=== PATIENT | female | born 1985 | race Caucasian/White ===

== ENCOUNTER 2020-03-31 14:39 | Emergency (ER) | payer OTHER ==
--- OUTSIDE RECORDS SUMMARY | 2020-03-31 14:41 | XMS REPORT | Continuity of Care Document ---
:1985 Author Organization [facility] t Address [address] [place] [address] Care Team Providers Name Role Phone Unavailable Unavailable Unavailable Problems Condition Condition Condition Status Onset Resolution Last Treating Co mments Source Name Details Category Date Date Treatment Clinician Date Asymptomat Asymptomat Problem Active [facility] hypertensi hypertensi Me moria ve urgency ve urgency l [facility] Depression Depression Problem Active [facility] with with [facility] - anxiety anxiety Memoria l [facility] Obesity Obesity Problem [facility] Multiple Multiple Problem [facility] joint pain Lorna kes - Memoria l [facility] Essential Essential Diagnosis Active [facility] hypertensi hypertensi Lorna kes - on on Memoria l [facility] Seasonal Seasonal Problem Active [facility] allergic allergic [facility] - rhinitis rhinitis Memori a l [facility] Anxiety Anxiety Problem Active [facility] disorder, disorder, Luke s - unspecifie unspecifie Me moria d d l [facility] Edema of Edema of Problem Active [facility] left lower left lower Lorna kes - extremity extremity Darrius carlitos l [facility] JULIA JULIA Problem Active [facility] positive positive [facility] Panic Panic Problem Active [facility] attacks attacks [facility] BMI BMI Problem Active [facility] 34.0-34.9, 34.0-34.9, Lorna kes - adult adult Memoria l [facility] Dysuria Dysuria Problem Active [facility] Sinus Sinus Diagnosis Active [facility] pressure pressure [facility] Allergies, Adverse Reactions, Alerts This patient has no known allergies or adverse reactions. Medications Ordered Filled Start Stop Current Ordering Indication Dosage Frequency Signature Comments Components Source Medication Medication Date Date Medication? Clinician (SIG) Name Name Jose Garcia Yes Na Cooley [address] [facility] 03[facility]26 each [facility] - 00:00: nostril Memoria 00 l Outpat[facility] ent Clinics PredniSONE PredniSONE 2019- Yes Na Cooley [address] [facility] 03-26 daily x 5 [facility] - 00:00: 00:00 days then Memoria 00 :00 one tablet l daily x 5 Outpati days ent Clinics Metoprolol Metoprolol Yes Na Cooley [address] Succinate Succinate 10-03 [facility] - ER ER 00:00: Memoria 00 l Outpati ent Clinics Lisinopril- Lisinopril- Yes Na Cooley take [address] [facility] Hydrochloro Hydrochloro tablet by [facility] - thiazide thiazide mouth Memori a every day l Outpati ent Clinics Claritin Claritin Yes Na Cooley [address] [facility] Bystolic Bystolic Yes Na Cooley [address] [facility] Doxycycline Doxycycline Yes Na Cooley [address] [facility] Hyclate Hyclate [facility] Xanax Xanax Yes Na Cooley [address] [facility] Nasonex Nasonex Yes Na Cooley [address] [facility] each [facility] - nostril [facility] Lexapro Lexapro Yes Na Cooley [address] [facility] Macrobid Macrobid Yes Na Cooley [address] with food [facility] - [facility] Procedures This patient has no known procedures. Encounters Start End Encounter Admission Attending Care Care Encounter Source Date/Time Date/Time Type Type Clinicians Facility Department ID 2020-03-26 2020-03-26 [facility] [id number] [facility] 15:40[facility]00 15:40:00 [facility] Medicine Outpati ent Clinics 2020-01-15 2020-01-15 [facility] [id number] 08:20:00 08:20:00 t [facility] Medicine Outpati ent Clinics 2019-11-15 2019-11-15 [facility] [id number] 08:[facility]:00:[address] Luke [place] - [address] [facility] Medicine Outpati ent Clinics 2019-07-17 2019-07-17 [facility] [id number] 08:20:00 08:20:[address] LuAle[place] - Drive [facility] Medicine Outpati ent Clinics 2019-07-04 2019-07-04 [facility] [id number] 15:46:00 15:46:00 [place] LuAlekto s - Drive [facility] Medicine Outpati ent Clinics 2018-11-24 2018-11-24 [facility] [id number] 08:30:00 08:30:00 [place] [employer] [facility] - Drive [facility] Medicine Outpati ent Clinics 2018-10-03 2018-10-03 [facility] [id number] [address] 11:46:00 11:46:00 [place] [facility] - Drive [facility] Medicine Outpati ent Clinics 2018-05-13 2018-05-13 [facility] [id number] [address] 08:30:00 08:30:00 [place] [facility] - Drive [facility] Medicine Outpati ent Clinics 2018-01-06 2018-01-06 [facility] [id number] 14:15:00 14:15:00 [place] - [address] [facility] Outpati ent Clinics Results This patient has no known results.
--- OUTSIDE RECORDS SUMMARY | 2020-03-31 14:41 | XMS REPORT ---
:1985 Author Organization [employer] Care Team Providers Name Role Phone Yasir, Avis Provider Role Unavailable Allergies, Adverse Reactions, Alerts Substance Reaction Event Type N.K.D.A. Info Not Available Non Drug Allergy Problems Problem Type Condition Code Onset Dates Condition Statu s Problem Obesity E66.9 Active Problem Asymptomatic hypertensive urgency I16.0 Active Problem Hypertension I10 Active Problem Dysuria R30.0 Active Problem BMI 34.0-34.9,adult Z68.34 Active Problem Sinus pressure J34.89 Active Problem Edema of left lower extremity R60.0 Active Problem JULIA positive R76.8 Active Problem Panic attacks F41.0 Active Problem Essential hypertension I10 Activ e Assessment Sinus pressure J34.89 Active Assessment Seasonal allergic rhinitis J30.2 A ctive Problem Depression with anxiety F41.8 Acti ve Problem Anxiety disorder, unspecified F41.9 Active Assessment Essential hypertension I10 Activ e Problem Seasonal allergic rhinitis J30.2 A ctive Problem Multiple joint pain M25.50 Active Medications Medication Code Code Instructions Start End Status Dosage System Date Date Metoprolol [facility] 90093574487 50 MG Orally Oct 03, Active 1 ta blet Succinate ER Once a day 2018 PredniSONE [place] 86922958235 10 MG Orally March 26March Active 2 t ablet Once a day 2019 31, daily x 5 2019 days then one tablet daily x 5 days Doxycycline [facility] 54927760872 100 MG Orally Active 1 tablet Hyclate Once a day Bystolic [facility] 43425765270 10 MG Orally Active 1 tabl et Once a day Macrobid [facility] 56652570489 100 MG Orally Active 1 cap pau every 12 hrs with food Xanax ND 74994824752 0.5 MG Orally Active 1 tabl et Twice a day prn anxiety attacks Nasonex [facility] 74421876613 50 MCG/ACT Active 2 sprays Nasally Once a in each day nostril Claritin [facility] 96343630476 10 MG Orally Active 1 tabl et Once a day Lisinopril-Hydr [facility] 29283065944 10-12.5 MG Active t ron 1 ochlorothiazide Orally Once a ta blet by day mouth every day Lexapro [facility] 69409651138 10 MG Orally Active 1 table t Once a day Flonase [facility] 57276855633 50 MCG/ACT March 26, Active 2 spray in Nasally Once a 2020 each day nostril Results No Known Results Summary Purpose eClinicalWorks Submission
--- OUTSIDE RECORDS SUMMARY | 2020-03-31 14:41 | XMS REPORT ---
:1985 Author Organization [employer] Care Team Providers Name Role Phone Avis Cooley Provider Role Unavailable Allergies No Known Allergies Problems Problem Type Condition Code Onset Dates Condition Statu s Problem Depression with anxiety F41.8 Acti ve Problem Obesity E66.9 Active Problem Multiple joint pain M25.50 Active Problem BMI 34.0-34.9,adult Z68.34 Active Problem Panic attacks F41.0 Active Problem Dysuria R30.0 Active Problem Essential hypertension I10 Activ e Problem Hypertension I10 Active Problem Edema of left lower extremity R60.0 Active Problem JULIA positive R76.8 Active Assessment Panic attacks F41.0 Active Assessment Depression with anxiety F41.8 Acti ve Assessment BMI 34.0-34.9,adult Z68.34 Active Problem Asymptomatic hypertensive urgency I16.0 Active Assessment Acute urinary tract infection N39.0 Active Problem Anxiety disorder, unspecified F41.9 Active Assessment Essential hypertension I10 Activ e Problem Seasonal allergic rhinitis J30.2 A ctive Medications Medication Code Code Instructions Start End Status Dosage System Date Date Doxycycline [facility] 21843913235 100 MG Orally Active 1 tablet Hyclate Once a day Nasonex [facility] 03475711008 50 MCG/ACT Active 2 sprays Nasally Once a in each day nostril Metoprolol [facility] 06472373106 50 MG Orally Oct 03, Active 1 ta blet Succinate ER Once a day 2018 Lisinopril-Hydr [facility] 41473180837 10-12.5 MG Active t ron 1 ochlorothiazide Orally Once a ta blet by day mouth every day Lexapro [facility] 86778145752 10 MG Orally Inactive 1 tabl et Once a day Bystolic [facility] 70008473399 10 MG Orally Active 1 tabl et Once a day Macrobid [facility] 07293479767 100 MG Orally Active 1 cap pau every 12 hrs with food Claritin [facility] 60722182557 10 MG Orally Active 1 tabl et Once a day Xanax [facility] 48551364986 0.5 MG Orally Active 1 tabl et Twice a day prn anxiety attacks Lexapro [facility] 16621451008 10 MG Orally Active 1 table t Once a day Results Name Result Date Reference Range Unit Abnormali ty Flag URINALYSIS AUTO W/O SCOPE ([id number]) ----ROSEANNA 2+ [id number] ----NIT pos [id number] ----PROTEIN neg [id number] ----pH 6.5 [id number] ----GLUCOSE neg [id number] ----KETONES neg [id number] ----SPECIFIC GRAVITY 1.010 [id number] ----BLO neg [id number] Summary Purpose eClinicalWorks Submission
--- NOTE | 2020-03-31 15:44 | RAD REPORT ---
EXAM DESCRIPTION: CT - Head Brain Wo Cont - 03/31/2020 3:31 pm CLINICAL HISTORY: Dizziness COMPARISON: None. TECHNIQUE: Computed axial tomography of the head was obtained. IV contrast was not requested. All CT scans are performed using dose optimization technique as appropriate and may include automated exposure control or mA/KV adjustment according to patient size. FINDINGS: An intracranial bleed is not seen . The ventricles are normal in caliber. No extra-axial fluid collection is noted. Fluid within the sinuses/ mastoids is not seen. IMPRESSION: No acute intracranial abnormality is seen. If patient's symptoms persist MRI of the bra in would be recommended.
[2020-03-31] MEDS ORDERED: NA CHLORIDE 0.9% 1,000 ML ONE (15:46)
[2020-03-31] MEDS ORDERED: DIAZEPAM 10 MG/2 ML INJ SYRINGE ONE (15:46)
--- NOTE | 2020-03-31 16:51 | EDPHYS ---
Physician Documentation [facility] Name: Jennifer Simpson Age: 34 yrs Sex: Female : 1985 Arrival Date: 03/31/2020 Time: 14:44 Bed 17 Private MD: ED Physician Dell Mckeon HPI: 03/31 15:23 This 34 yrs old Female presents to ER via Ambulatory with complaints of pm1 Vertigo, Head Pressure. 15:23 The patient presents with vertigo. pm1 15:23 Onset: The symptoms/episode began/occurred 5 day(s) ago. Context: occurred at home, pm1 just prior to the episode the patient experienced bilateral tinnitus. Modifying factors: The symptoms are alleviated by holding head still, the symptoms are aggravated by movement of head, changing position. Associated signs and symptoms: Pertinent negatives: chest pain, focal weakness, headache, nausea, numbness, palpitations, shortness of breath, tingling, vomiting. Severity of symptoms: in the emergency department the symptoms have improved. The patient has not experienced similar symptoms in the past. Telemedicine with PCP and prescribed steroids. 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 - Social history:: Smoking status: Patient denies any tobacco usage or history of. ROS: 15:23 Constitutional: Negative for fever, chills, and weight loss, Eyes: Negative for injury, pm1 pain, redness, and discharge. 15:23 Neck: Negative for injury, pain, and swelling, Cardiovascular: Negative for chest pain, palpitations, and edema, Respiratory: Negative for shortness of breath, cough, wheezing, and pleuritic chest pain, Abdomen/GI: Negative for abdominal pain, nausea, vomiting, diarrhea, and constipation, Back: Negative for injury and pain, MS/Extremity: Negative for injury and deformity, Skin: Negative for injury, rash, and discoloration. 15:23 ENT: Positive for tinnitus, Negative for ear pain, sore throat, dental pain. 15:23 Neuro: Positive for dizziness, Negative for headache, numbness, tingling, weakness. Exam: 15:23 Constitutional: This is a well developed, well nourished patient who is awake, alert, pm1 and in no acute distress. Head/Face: Normocephalic, atraumatic. 15:23 ENT: Nares patent. No nasal discharge, no septal abnormalities noted. Tympanic membranes are normal and external auditory canals are clear. Oropharynx with no redness, swelling, or masses, exudates, or evidence of obstruction, uvula midline. Mucous membranes moist. Neck: Trachea midline, no thyromegaly or masses palpated, and no cervical lymphadenopathy. Supple, full range of motion without nuchal rigidity, or vertebral point tenderness. No Meningismus. 15:23 Back: No spinal tenderness. No costovertebral tenderness. Full range of motion. Skin: Warm, dry with normal turgor. Normal color with no rashes, no lesions, and no evidence of cellulitis. MS/ Extremity: Pulses equal, no cyanosis. Neurovascular intact. Full, normal range of motion. 15:23 Eyes: Nystagmus: Right sided horizontal nystagmus . 15:23 Cardiovascular: Exam negative for acute changes, Rate: normal, Rhythm: regular, Pulses: no pulse deficits are appreciated. 15:23 Respiratory: Exam negative for acute changes, respiratory distress, shortness of breath. 15:23 Abdomen/GI: Exam negative for acute changes, Inspection: abdomen appears normal, Palpation: abdomen is soft and non-tender. 15:23 Neuro: Exam negative for acute changes, Orientation: is normal, Mentation: is normal, Motor: is normal, moves all fours. Vital Signs: 14:59 BP 140 / 100; Pulse 106; Resp 16; Temp 98.2(O); Pulse Ox 100% on R/A; Weight 83.91 kg; hb Height 5 ft. 1 in. (154.94 cm); Pain 0/10; 15:19 BP 135 / 90; Pulse 101; Resp 18; Pulse Ox 99% ; Pain 0/10; ks7 16:15 BP 114 / 80; Pulse 61; Resp 15 S; Pulse Ox 100% on R/A; ca1 16:29 BP 114 / 80; Pulse 72; Resp 16; Temp 100; Pain 0/10; ks7 16:47 BP 120 / 92; Pulse 72; Resp 16; Pulse Ox 100% on R/A; Pain 0/10; ks7 16:55 Pulse Ox 100% on R/A; Pain 0/10; ks7 14:59 Body Mass Index 34.96 (83.91 kg, 154.94 cm) hb MDM: 14:56 Patient medically screened. pm1 16:50 Data reviewed: vital signs. Data interpreted: Pulse oximetry: on room air is 100 %. pm1 Interpretation: normal. Counseling: I had a detailed discussion with the patient and/or guardian regarding: the historical points, exam findings, and any diagnostic results supporting the discharge/admit diagnosis, radiology results, the need for outpatient follow up, to return to the emergency department if symptoms worsen or persist or if there are any questions or concerns that arise at home. 03/31 15:18 Order name: CT Head Brain wo Cont; Complete Time: 15:50 pm1 03/31 15:23 Order name: IV Saline Lock; Complete Time: 15:49 pm1 Administered Medications: Discontinued: NS 0.9% 1000 ml IV at 1000 ml once 15:47 Drug: NS 0.9% 1000 ml Route: IV; Rate: 1000 ml; Site: left antecubital; ks7 15:49 Drug: Valium 5 mg Route: IVP; Site: left antecubital; ks7 16:55 Follow up: Pulse Ox 100% RA; Pain 0/10 Adult ks7 Disposition: 04/01 05:32 Co-signature as Attending Physician, Dell Mckeon MD I agree with the assessment and chay plan of care. Disposition: 03/31/20 16:50 Discharged to Home. Impression: Benign paroxysmal vertigo. - Condition is Stable. - Discharge Instructions: Benign Positional Vertigo. - Prescriptions for Meclizine 25 mg Oral Tablet - take 1 tablet by ORAL route every 8 hours As needed; 30 tablet. Valium 2 mg Oral Tablet - take 1 tablet by ORAL route every 8 hours As needed; 12 tablet. - Medication Reconciliation Form, Thank You Letter, Antibiotic Education, Prescription Opioid Use form. - Follow up: Emergency Department; When: As needed; Reason: Worsening of condition. Follow up: Private Physician; When: 2 - 3 days; Reason: Recheck today's complaints, Continuance of care, Re-evaluation by your physician. - Problem is new. - Symptoms have improved. Signatures: Dispatcher [employer] EDDell Denny MD MD cha Marinas, Patrick, PAINT ROLLER WINDER PAINT ROLLER WINDER pm1 Lucy Tolentino, RN RN Katie Best RN RN ks7 Corrections: (The following items were deleted from the chart) 03/31 17:16 16:50 03/31/2020 16:50 Discharged to Home. Impression: Benign paroxysmal vertigo. ks7 Condition is Stable. Forms are Medication Reconciliation Form, Thank You Letter, Antibiotic Education, Prescription Opioid Use. Follow up: Emergency Department; When: As needed; Reason: Worsening of condition. Follow up: Private Physician; When: 2 - 3 days; Reason: Recheck today's complaints, Continuance of care, Re-evaluation by your physician. Problem is new. Symptoms have improved. pm1
--- NOTE | 2020-03-31 16:51 | ER ---
Nurse's Notes [facility] Name: Jennifer Simpson Age: 34 yrs Sex: Female : 1985 Arrival Date: 03/31/2020 Time: 14:44 Bed 17 Private MD: Diagnosis: Benign paroxysmal vertigo Presentation: 03/31 14:59 Chief complaint: Dizziness x 1 week, pressure behind the ears and top of head x 5 days. hb On prednisone day 6 for vertigo. Coronavirus screen: Proceed with normal triage. Ebola Screen: No symptoms or risks identified at this time. Initial Sepsis Screen: Does the patient meet any 2 criteria? No. Patient's initial sepsis screen is negative. Does the patient have a suspected source of infection? No. Patient's initial sepsis screen is negative. Risk Assessment: Do you want to hurt yourself or someone else? Patient reports no desire to harm self or others. Onset of symptoms was March 26, 2020. 14:59 Method Of Arrival: Ambulatory hb 14:59 Acuity: YESSENIA 3 hb Triage Assessment: 15:19 General: Appears tearful, c/o vertigo and pressure in her head. currently taking ks7 prednisone rx from her PCP x 1 week.. Behavior is cooperative, anxious. Pain: Denies pain. Complains of pain in scalp, right ear, left ear and right eye Quality of pain is described as pressure. 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 - Social history:: Smoking status: Patient denies any tobacco usage or history of. Screenin:21 Abuse screen: Denies threats or abuse. Denies injuries from another. Nutritional ks7 screening: No deficits noted. Tuberculosis screening: No symptoms or risk factors identified. Fall Risk None identified. Assessment: 15:21 General: pt c/o vertigo/ room spinning and pressure to head x 1 week. pt currently ks7 taking prednisone prescribed by her pcp. pt also anxious worried about aneurysm d/t her grandpa dying from aneurysm a few years ago. pt also has allergies and sinus congetion. pt aaox4 ambulatory. 16:29 Reassessment: Patient states feeling better. Patient states symptoms have improved. ks7 16:47 Reassessment: Patient states feeling better. ks7 Vital Signs: 14:59 BP 140 / 100; Pulse 106; Resp 16; Temp 98.2(O); Pulse Ox 100% on R/A; Weight 83.91 kg; hb Height 5 ft. 1 in. (154.94 cm); Pain 0/10; 15:19 BP 135 / 90; Pulse 101; Resp 18; Pulse Ox 99% ; Pain 0/10; ks7 16:15 BP 114 / 80; Pulse 61; Resp 15 S; Pulse Ox 100% on R/A; ca1 16:29 BP 114 / 80; Pulse 72; Resp 16; Temp 100; Pain 0/10; ks7 16:47 BP 120 / 92; Pulse 72; Resp 16; Pulse Ox 100% on R/A; Pain 0/10; ks7 16:55 Pulse Ox 100% on R/A; Pain 0/10; ks7 14:59 Body Mass Index 34.96 (83.91 kg, 154.94 cm) hb ED Course: 14:44 Patient arrived in ED. ag5 14:55 Abdon Trejo NP is PHCP. pm1 14:55 Dell Mckeon MD is Attending Physician. pm1 15:01 Triage completed. hb 15:03 Arm band placed on. hb 15:18 Katie Best, ASUNCION is Primary Nurse. ks7 15:21 Patient has correct armband on for positive identification. Bed in low position. Call ks7 light in reach. Side rails up X2. 15:21 No provider procedures requiring assistance completed. Patient did not have IV access ks7 during this emergency room visit. 15:31 CT Head Brain wo Cont In Process Unspecified. EDMS 15:32 CT completed. Patient tolerated procedure well. Patient moved back from CT. bq 15:50 Resting quietly. ks7 15:50 Inserted saline lock: 20 gauge in left antecubital area, using aseptic technique. ks7 16:47 Nurse Practitioner and/or Physician Scroll Assembler to see patient. reassessing pt. ks7 17:16 IV discontinued, intact, bleeding controlled, No redness/swelling at site. Pressure ks7 dressing applied. Administered Medications: Discontinued: NS 0.9% 1000 ml IV at 1000 ml once 15:47 Drug: NS 0.9% 1000 ml Route: IV; Rate: 1000 ml; Site: left antecubital; ks7 15:49 Drug: Valium 5 mg Route: IVP; Site: left antecubital; ks7 16:55 Follow up: Pulse Ox 100% RA; Pain 0/10 Adult ks7 Outcome: 16:50 Discharge ordered by MD. pm1 17:16 Discharged to home ambulatory. ks7 17:16 Condition: good 17:16 Discharge instructions given to patient, Instructed on discharge instructions, medication usage, Demonstrated understanding of instructions, medications, Prescriptions given X 2. 17:16 Patient left the ED. ks7 Signatures: Dispatcher [employer] EDMS Britney Moctezuma Patrick, NP SHEEPSKIN PICKLER pm1 Lucy Tolentino RN RN Samanta Edwards RN RN [facility] Nohemi Johansen 5 Katie Best RN RN ks7
[2020-03-31 17:27] VITALS: O2SAT 100
[2020-03-31 17:29] VITALS: TEMP 100
[2020-03-31 17:30] VITALS: BP 120/92
== END 2020-03-31 17:16 | disposition home or self-care (01) ==
LOC: ER 14:39
DX: H81.10 Benign paroxysmal vertigo, unspecified ear (principal); I10 Essential (primary) hypertension
CPT/HCPCS: 70450; J3360; J7030; 96374; 99284

== ENCOUNTER 2021-12-29 12:29 | Emergency (ER) | payer BC, OTHER ==
--- OUTSIDE RECORDS SUMMARY | 2021-12-29 12:31 | XMS REPORT | Continuity of Care Document ---
:1985 Author Organization [facility] t Address [address] [place] [address] Care Team Providers Name Role Phone Brooklynn Cooley Attending Clinician Unavailable Problems This patient has no known problems. Allergies, Adverse Reactions, Alerts This patient has no known allergies or adverse reactions. Medications Ordered Filled Start Stop Current Ordering Indication Dosage Frequency Signature Comments Components Source Medication Medication Date Date Medication? Clinician (SIG) Name Name Jose Gracee Yes Na Cooley [address] [facility] PredniSONE PredniSONE 2020- No Na Cooley [address] [facility] 7-21 07-31 daily x 5 [facility] [...] [facility] Doxycycline Doxycycline Yes Na Cooley [...] [facility] Macrobid Macrobid Yes Na Cooley [address] [facility] with [facility] Procedures This patient has no known procedures. Encounters Start End Encounter Admission Attending Care Care Encounter Source Date/Time Date/Time Type Type Clinicians Facility Department ID 2021-10-01 Outpatient Avis Cooley [facility] [id number] [facility] 13:45:06 [id number] [facility] 2021-10-01 Outpatient Avis Cooley [facility] [id number] [facility] [address] 13:44:10 [id number] [facility] 2021-10-01 Outpatient Avis Cooley [facility] [id number] [facility] 12:03:01 [id number] [facility] 2021-10-01 Outpatient Avis Cooely [facility] [id number] [facility] 11:20:55 [id number] [facility] 2021-09-16 2021-09-16 ambulatory [facility] [id number] [facility] 2021-05-07 2021-05-07 Outpatient [facility] [id number] [facility] 2021-05-01 2021-05-01 Outpatient [facility] [id number] [facility] 2021-04-04 2021-04-04 Outpatient [facility] [id number] [facility] 2020-07-24 2020-07-24 Outpatient [facility] [id number] [facility]00 [facility] 2020-04-23 2020-04-23 [facility] [id number] [facility] 15:27:00 15:27:00 [facility] [place] [facility] Outpat[facility] ent Clinics 2020-04-23 2020-04-23 [facility] [id number] [facility] 11:51:00 11:51:00 t [employer] [facility] Medicine Outpat[facility] ent Clinics 2020-04-04 2020-04-04 [facility] [id number] [facility] 16:20:00 16:20:00 t [employer] [facility] Out[facility] Clinics 2020-03-26 2020-03-26 [facility] [id number] 15:40:00 15:40:00 t [employer] [facility] l Medicine Outpati ent Clinics 2020-01-15 2020-01-15 [facility] [id number] [facility] 08:20:00 08:20:00 t [employer] l Medicine Outpati ent Clinics 2019-11-15 2019-11-15 [facility] [id number] 08:00:00 08:00:00 t [employer] [facility] Medicine Outpati ent Clinics 2019-07-17 2019-07-17 [facility] [id number] [address] 08[facility]20:00 08:20:00 t [employer] [facility] l Medicine Outpati ent Clinics 2019-07-04 2019-07-04 [facility] [id number] [facility] 15:46:00 15:46:00 t [employer] [facility] l Medicine Outpati ent Clinics 2018-11-24 2018-11-24 [facility] [id number] [facility] 08:30:00 08:30:00 t [place] [employer] [facility] Clin[facility] 2018-10-03 2018-10-03 [facility] [id number] [facility] 11:46:00 11:46:00 t [employer] [facility] Clin[facility] 2018-05-13 2018-05-13 [facility] [id number] 08:30:00 08:30:00 t [employer] [facility] Clin[facility] 2018-01-06 2018-01-06 [facility] [id number] [facility] 14:15:00 14:15:00 t [employer] [facility] Results This patient has no known results.
[2021-12-29 13:34] LABS: Urine Blood Negative (Negative); Urine Glucose Negative (Negative); Urine Protein Negative (Negative)
--- NOTE | 2021-12-29 13:46 | RAD REPORT ---
EXAM DESCRIPTION: RAD - Chest Single View - 12/29/2021 1:40 pm CLINICAL HISTORY: CHEST PAIN COMPARISON: Portable 12/13/2013 TECHNIQUE: AP portable chest image was obtained 12/29/2021 1:40 pm . FINDINGS: Lungs are clear. Heart and vasculature are normal. No measurable pleural effusion and no p neumothorax. No acute bony abnormality seen. No acute aortic findings suspected. IMPRESSION: No acute cardiopulmonary process. No significant change from comparison study.
[2021-12-29 13:56] LABS: Absolute Lymphocytes (CBC) 2.2 K/uL (0.7-4.9); Hematocrit 39.7 % (36.0-45.0); MPV 9.6 fL (7.6-11.3); RBC Red Blood Cell Count 4.38 M/uL (3.86-4.86)
[2021-12-29 13:58] LABS: ALT/SGPT 29 U/L (12-78); AST/SGOT 14 U/L (15-37); Albumin 4.4 g/dL (3.4-5.0); Alkaline Phosphatase 77 U/L (45-117); BUN Blood Urea Nitrogen 13 mg/dL (7-18); Bicarbonate 28 mmol/L (21-32); Bilirubin Direct 0.2 mg/dL (0-0.2); Bilirubin Total 0.6 mg/dL (0.2-1.0); Glucose Level 102 mg/dL (74-106); NT PRO-BNP 33 pg/mL (<125); Potassium 3.5 mmol/L (3.5-5.1); Sodium Level 134 mmol/L (136-145)
[2021-12-29 13:59] LABS: Troponin High Sensitivity < 3.0 pg/mL (<58.9)
--- NOTE | 2021-12-29 14:42 | EDPHYS ---
Physician Documentation [facility] Name: Jennifer Simpson Age: 36 yrs Sex: Female : 1985 Arrival Date: 12/29/2021 Time: 12:30 Bed 28 Private MD: Avis Cooley ED Physician Ousmane Wharton HPI: 12/29 13:02 This 36 yrs old Female presents to ER via Ambulatory with complaints of Chest Pain > 30 rn y/o. 13:02 The patient or guardian reports chest pain that is located primarily in the anterior rn chest wall, left. The pain does not radiate. Associated signs and symptoms: Pertinent positives: palpitations, Pertinent negatives: abdominal pain, cough, diaphoresis, dizziness, headache, shortness of breath, syncope, vomiting. The chest pain is described as aching. Duration: The patient or guardian reports multiple episodes, that are intermittent. Modifying factors: The symptoms are alleviated by nothing. the symptoms are aggravated by nothing. Severity of pain: At its worst the pain was mild in the emergency department the pain has improved. The patient has not experienced similar symptoms in the past. The patient has not recently seen a physician. Pt reports for last week or so has been having intermittent chest "aching", last for a few minutes, then goes away on its own. No fever, no cough, so sob. No trauma. No hemoptysis. No famhx of early cardiac disease. No recent changes in medication. Was just on vacation. No drug use. Does not smoke or vape.. Historical: - Allergies: 12:40 No Known Allergies; aa5 - Home Meds: 12:40 Bystolic 10 mg Oral tab 1 tab once daily [Active]; lisinopril-hydrochlorothiazide aa5 10-12.5 mg Oral tab 1 tab once daily [Active]; - PMHx: 12:40 Hypertension; aa5 12:40 Anxiety; aa5 - Immunization history:: Adult Immunizations up to date. - Social history:: Smoking status: Patient denies any tobacco usage or history of. - Family history:: not pertinent. - Hospitalizations: : No recent hospitalization is reported. ROS: 13:02 Constitutional: Negative for fever, chills, and weight loss, Eyes: Negative for injury, rn pain, redness, and discharge, Neck: Negative for injury, pain, and swelling, Cardiovascular: Negative for edema Respiratory: Negative for shortness of breath, cough, wheezing, and pleuritic chest pain, Abdomen/GI: Negative for abdominal pain, nausea, vomiting, diarrhea, and constipation, Back: Negative for injury and pain, MS/Extremity: Negative for injury and deformity, Skin: Negative for injury, rash, and discoloration, Neuro: Negative for headache, weakness, numbness, tingling, and seizure. Exam: 13:02 Constitutional: This is a well developed, well nourished patient who is awake, alert, rn and in no acute distress. Ambulatory to room without difficulty or assistance. Head/Face: Normocephalic, atraumatic. Eyes: Periorbital areas with no swelling, redness, or edema. ENT: No stridor Cardiovascular: Tachycardic, regular. No pulse deficits. Respiratory: No increased work of breathing, no retractions or nasal flaring. Abdomen/GI: Soft, non-tender Skin: Warm, dry MS/ Extremity: Pulses equal, no cyanosis. Neurovascular intact. Full, normal range of motion. Equal circumference. Neuro: Awake and alert, GCS 15 13:17 ECG was reviewed by the Attending Physician. rn Vital Signs: 12:39 BP 141 / 96; Pulse 109; Resp 20 S; Temp 98.0(TE); Pulse Ox 100% on R/A; Weight 86.18 kg aa5 (R); Height 5 ft. 1 in. (154.94 cm) (R); Pain 0/10; 13:38 BP 142 / 101; Pulse 78; Resp 18; Pulse Ox 99% on R/A; ld1 14:29 BP 108 / 87; Pulse 77; Resp 19; Pulse Ox 100% on R/A; ld1 12:39 Body Mass Index 35.90 (86.18 kg, 154.94 cm) aa5 MDM: 12:40 Patient medically screened. rn 14:40 Differential diagnosis: acute myocardial infarction, acute pericarditis, anxiety, chest rn wall pain, esophagitis, gastritis, gastroesophageal reflux disease (GERD), pericarditis, pleurisy, pneumonia, pneumothorax, pulmonary embolus. Data reviewed: vital signs, nurses notes, lab test result(s), EKG, radiologic studies, plain films, and as a result, I will discharge patient. Counseling: I had a detailed discussion with the patient and/or guardian regarding: the historical points, exam findings, and any diagnostic results supporting the discharge/admit diagnosis, lab results, radiology results, the need for outpatient follow up, to return to the emergency department if symptoms worsen or persist or if there are any questions or concerns that arise at home. Special discussion: Based on the patient's history, exam, and Dx evaluation, there is no indication for emergent intervention or inpatient Tx. It is understood by the patient/guardian that if the Sx's persist or worsen they need to return immediately for re-evaluation. I discussed with the patient/guardian in detail that at this point there is no indication for admission to the hospital. It is understood, however, that if the symptoms persist or worsen the patient needs to return immediately for re-evaluation. 12/29 12:51 Order name: Basic Metabolic Panel; Complete Time: 14:40 rn 12/29 12:51 Order name: CBC with Diff; Complete Time: 14:40 rn 12/29 12:51 Order name: D-Dimer; Complete Time: 13:52 rn 12/29 12:51 Order name: LFT's; Complete Time: 14:40 rn 12/29 12:51 Order name: NT PRO-BNP; Complete Time: 14:40 rn 12/29 12:51 Order name: Troponin HS; Complete Time: 14:40 rn 12/29 12:51 Order name: XRAY Chest (1 view); Complete Time: 13:52 rn 12/29 12:51 Order name: EKG; Complete Time: 12:52 rn 12/29 12:51 Order name: Cardiac monitoring; Complete Time: 13:12 rn 12/29 12:51 Order name: EKG - Nurse/Tech; Complete Time: 13:12 rn 12/29 12:51 Order name: TSH; Complete Time: 14:40 rn 12/29 12:51 Order name: T4 Free; Complete Time: 14:40 rn 12/29 13:34 Order name: Urine Dipstick-Ancillary; Complete Time: 13:52 EDMS 12/29 13:35 Order name: Urine --Ancillary (enter results); Complete Time: 14:40 bd 12/29 12:51 Order name: IV Saline Lock; Complete Time: 13:35 rn 12/29 12:51 Order name: Labs collected and sent; Complete Time: 13:35 rn 12/29 12:51 Order name: O2 Per Protocol; Complete Time: 13:12 rn 12/29 12:51 Order name: O2 Sat Monitoring; Complete Time: 13:12 rn 12/29 12:51 Order name: Urine Dipstick-Ancillary (obtain specimen); Complete Time: 13:34 rn 12/29 12:51 Order name: Urine Test (obtain specimen); Complete Time: 13:35 rn EC:17 Rate is 77 beats/min. Rhythm is regular. QRS [place] is Normal. MD interval is normal. QRS rn interval is normal. QT interval is normal. No Q waves. T waves are Normal. No ST changes noted. Clinical impression: Normal ECG. Interpreted by me. Reviewed by me. Administered Medications: No medications were administered Disposition Summary: 12/29/21 14:41 Discharge Ordered Location: Home rn Problem: an ongoing problem rn Symptoms: have improved rn Condition: Stable rn Diagnosis - Chest pain, unspecified rn - Palpitations rn Followup: rn - With: Private Physician - When: As needed - Reason: Recheck today's complaints, Re-evaluation by your physician Discharge Instructions: - Discharge Summary Sheet rn - Nonspecific Chest Pain, Adult rn - Palpitations rn Forms: - Medication Reconciliation Form rn - Thank You Letter rn - Antibiotic rn picu - Prescription Opioid Use rn Signatures: Dispatcher [employer] Ousmane Paul MD MD rn Calderon, Audri RN RN aa5
--- NOTE | 2021-12-29 14:42 | ER ---
Nurse's Notes [facility] Name: Jennifer Simpson Age: 36 yrs Sex: Female : 1985 Arrival Date: 12/29/2021 Time: 12:30 Bed 28 Private MD: Avis Cooley Diagnosis: Chest pain, unspecified;Palpitations Presentation: 12/29 12:39 Chief complaint: Patient states: intermittent chest pressure and heart fluttering that aa5 began approximately 1 week ago. Denies any other symptoms. Onset of symptoms was December 2021. 12:39 Acuity: YESSENIA 3 aa5 12:39 Initial Sepsis Screen: Does the patient meet any 2 criteria? No. Patient's initial aa5 sepsis screen is negative. Does the patient have a suspected source of infection? No. Patient's initial sepsis screen is negative. Risk Assessment: Do you want to hurt yourself or someone else? Patient reports no desire to harm self or others. 12:39 Coronavirus screen: At this time, the client does not indicate any symptoms associated aa5 with coronavirus-19. Ebola Screen: No symptoms or risks identified at this time. 12:39 Method Of Arrival: Ambulatory aa5 Historical: - Allergies: 12:40 No Known Allergies; aa5 - Home Meds: 12:40 Bystolic 10 mg Oral tab 1 tab once daily [Active]; lisinopril-hydrochlorothiazide aa5 10-12.5 mg Oral tab 1 tab once daily [Active]; - PMHx: 12:40 Hypertension; aa5 12:40 Anxiety; aa5 - Immunization history:: Adult Immunizations up to date. - Social history:: Smoking status: Patient denies any tobacco usage or history of. - Family history:: not pertinent. - Hospitalizations: : No recent hospitalization is reported. Screenin:38 Abuse screen: Denies threats or abuse. Denies injuries from another. Nutritional ld1 screening: No deficits noted. Tuberculosis screening: No symptoms or risk factors identified. Fall Risk None identified. Assessment: 13:38 General: Appears in no apparent distress. comfortable, Behavior is calm, cooperative, ld1 appropriate for age. Pain: Complains of pain in chest Pain does not radiate. Pain currently is 7 out of 10 on a pain scale. Quality of pain is described as sharp, shooting, throbbing, Pain began suddenly. Neuro: Level of Consciousness is awake, alert, obeys commands, Oriented to person, place, time, situation. Cardiovascular: Capillary refill < 3 seconds Patient's skin is warm and dry. Rhythm is regular. Respiratory: Airway is patent Respiratory effort is even, unlabored, Respiratory pattern is regular, symmetrical. GI: Abdomen is flat, non-distended. : No signs and/or symptoms were reported regarding the genitourinary system. EENT: No signs and/or symptoms were reported regarding the EENT system. Derm: No signs and/or symptoms reported regarding the dermatologic system. Musculoskeletal: No signs and/or symptoms reported regarding the musculoskeletal system. 14:29 Reassessment: Patient appears in no apparent distress at this time. Patient and/or ld1 family updated on plan of care and expected duration. Pain level reassessed. Patient is alert, oriented x 3, equal unlabored respirations, skin warm/dry/pink. Vital Signs: 12:39 BP 141 / 96; Pulse 109; Resp 20 S; Temp 98.0(TE); Pulse Ox 100% on R/A; Weight 86.18 kg aa5 (R); Height 5 ft. 1 in. (154.94 cm) (R); Pain 0/10; 13:38 BP 142 / 101; Pulse 78; Resp 18; Pulse Ox 99% on R/A; ld1 14:29 BP 108 / 87; Pulse 77; Resp 19; Pulse Ox 100% on R/A; ld1 12:39 Body Mass Index 35.90 (86.18 kg, 154.94 cm) aa5 ED Course: 12:30 Patient arrived in ED. am2 12:30 Avis Cooley MD is Private Physician. am2 12:39 Arm band placed on. aa5 12:40 Triage completed. aa5 12:40 Ousmane Wharton MD is Attending Physician. rn 13:12 Lizbeth Alfaro RN is Primary Nurse. ld1 13:27 Inserted saline lock: 20 gauge in left antecubital area, using aseptic technique. Blood ld1 collected. 13:38 Patient has correct armband on for positive identification. Placed in gown. Bed in low ld1 position. Call light in reach. Side rails up X2. line camera operator on. Pulse ox on. NIBP on. Door closed. Noise minimized. Warm blanket given. 13:38 No provider procedures requiring assistance completed. Patient maintains SpO2 ld1 saturation greater than 95% on room air. 13:41 XRAY Chest (1 view) In Process Unspecified. EDMS 14:52 IV discontinued, intact, bleeding controlled, No redness/swelling at site. ld1 Administered Medications: No medications were administered Outcome: 14:41 Discharge ordered by . rn 14:52 Discharged to home ambulatory. ld1 14:52 Condition: stable 14:52 Discharge instructions given to patient, Instructed on discharge instructions, follow up and referral plans. Demonstrated understanding of instructions, follow-up care. 14:52 Patient left the ED. ld1 Signatures: Dispatcher [employer] EDMS Ousmane Wharton MD MD rn Calderon, Audri RN RN [id number] Shazia Henderson am2 Lizbeth Alfaro RN RN ld1
[2021-12-29 15:30] VITALS: TEMP 98
[2021-12-29 15:33] VITALS: BP 108/87; O2SAT 100
--- NOTE | 2021-12-30 09:34 | EKG ---
Test Date: 2021-12-29 Test Time: 12:56:52 [employer] Supervisor: SHANELL MEASUREMENT RESULTS: Intervals: Rate: 77 NC: 124 QRSD: 90 QT: 374 QTc: 423 [place]: P: 48 NC: 124 QRS: 54 T: 33 INTERPRETIVE STATEMENTS: Normal sinus rhythm Cannot rule out Anterior infarct, age undetermined Abnormal ECG Compared to ECG 12/13/2013 08:47:52 Myocardial infarct finding now present Electronically Signed On 12-30-21 09:31:58 CDT by Ronald Kinsey
== END 2021-12-29 14:52 | disposition home or self-care (01) ==
LOC: ER 12:29
DX: R07.9 Chest pain, unspecified (principal); R00.2 Palpitations; I10 Essential (primary) hypertension; F41.9 Anxiety disorder, unspecified
CPT/HCPCS: 36415; 71045; 80048; 80076; 81003; 81025; 83880; 84439; 84443; 84484; 85025; 85379; 93005; 99285